=== PATIENT | female | born 1985 | race Hispanic/Latino ===

== ENCOUNTER 2016-11-22 10:56 | Emergency (ER) | payer OTHER ==
[~2016-11-22] VITALS: Ht 154.9 cm; Wt 107.0 kg
--- NOTE | 2016-11-22 11:30 | ED UPPER/LOWER EXTREMITY COMPL ---
History of Present Illness General Chief Complaint: Lower Extremity Problems Stated Complaint: ANKLE PAIN Source: patient Exam Limitations: no limitations Vital Signs & Intake/Output Vital Signs & Intake/Output Vital Signs Date Time Temp Pulse Resp B/P B/P Pulse O2 O2 Flow FiO2 Mean Ox Delivery Rate 11/22 1255 97.9 78 18 108/70 99 Room Air 11/22 1112 98.2 79 16 104/70 98 Room Air Room Air Allergies Coded Allergies: No Known Allergies (11/22/16) Reconcile Medications Levothyroxine Sodium 50 MCG TABLET 1 TAB PO DAILY AC THYROID (Reported) Meloxicam (Mobic) 15 MG TABLET 1 TAB PO DAILY PRN PAIN Triage Note: PT TO TRIAGE WITH RIGHT MEDIAL ANKLE PAIN FOR 1 MONTH. PT STATES SHE ROLLED IT WROKING OUT. NO SWELLING REDNNESS NOTED Triage Nurses Notes Reviewed? yes Onset: Abrupt Duration: intermittent Timing: recent history Severity: moderate Severity Numbers: 5 : No Patient currently breastfeeds: No HPI: Patient is a 31-year-old female who presents emergency and that 2 weeks ago patient was trying to get off of a spinning like where her left foot got caught with the strap where she twisted her left foot resulting in pain to the medial aspect of her ankle. Patient states that symptoms have improved however yesterday she was running and noticed pain after the run to the same area of the medial left ankle region. Patient has not taken any medications for symptoms. Patient does state that ambulation makes worsen she has a limp. (JUDIE CAZARES) Past History Travel History Traveled to [place] past 21 day No Medical History Any Pertinent Medical History? see below for history Neurological: NONE EENT: NONE Cardiovascular: NONE Respiratory: NONE Gastrointestinal: NONE Hepatic: NONE Renal: NONE Musculoskeletal: NONE Psychiatric: depression Endocrine: hypothyroidism Blood Disorders: NONE Cancer(s): NONE AIR TRAFFIC SYSTEMS TECHNICIAN/Reproductive: NONE Surgical History Surgical History: non-contributory Psychosocial History What is your primary language Luxembourger Tobacco Use: Never used ETOH Use: denies use Illicit Drug Use: denies illicit drug use Family History Hx Contributory? No (JUDIE CAZARES) Review of Systems Review of Systems Constitutional: Reports: no symptoms. EENTM: Reports: no symptoms. Respiratory: Reports: no symptoms. Cardiovascular: Reports: no symptoms. Gastrointestinal/Abdominal: Reports: no symptoms. Genitourinary: Reports: no symptoms. Musculoskeletal: Reports: see HPI, joint pain. Skin: Reports: no symptoms. Neurological/Psychological: Reports: no symptoms. Hematologic/Endocrine: Reports: no symptoms. Immunological: Reports: no symptoms. All Other Systems: Reviewed and Negative (JUDIE CAZARES) Physical Exam Physical Exam General Appearance: no apparent distress, obese Neurologic/Tendon: normal sensation, normal motor functions, normal tendon functions, responds to pain, no evidence tendon injury, no pulse deficit Skin: intact, normal color, warm/dry Comments: HEENT: Normal EENT exam Neck: Supple, no lymphadenopathy, normal range of motion without pain or tenderness Back: Nontender, no CVA tenderness. Cardiovascular: Regular rate and rhythms no murmurs rubs or gallops, normal JVP Respiratory: Chest nontender. No respiratory distress.breath sounds clear to auscultation bilaterally Abdomen: Soft, nontender nondistended, no appreciable organomegaly. Normal bowel sounds. No ascites Extremity: Left knee nontender full active range of motion Left ankle normal inspection noted point tenderness to medial malleoli and deltoid ligament full active range of motion noted with mild pain Left foot normal inspection nontender pedal pulse +2 Neuro: Alert oriented x3, motor sensory normal, Skin: No appreciable rash on exposed skin, skin is warm and dry. Psych: Mood and affect is normal, memory and judgment is normal. (JUDIE CAZARES) Progress Differential Diagnosis: arterial insufficiency, compartment syndrome, contusion, dislocation, DVT, fracture, gout, septic arthritis, sprain, tendon injury Plan of Care: Orders Procedure Date/time Status Durable Medical Equipment 11/22 1154 Active No osseous injury noted on x-rays to where patient was symptomatically tender. Due to history of present illness and exam findings patient is likely to have deltoid sprain I placed an Salvatore wrap to the left ankle pre-and post-neurovascular was intact. Crutches were instructed for weightbearing as tolerated (JUDIE CAZARES) Diagnostic Imaging: Viewed by Me: Radiology Read. Radiology Impression: no fracture Comments: PATIENT: RODERICK FUENTES PRESENT AGE: 31 PATIENT ACCOUNT NO: [id number] : 85 LOCATION: [facility] ORDERING PHYSICIAN: JUDIE NELSON SERVICE DATE: 11/22/16-1116 EXAM TYPE: RAD - XRY-ANKLE 3 OR MORE VIEWS L EXAMINATION: XR ANKLE, LEFT CLINICAL INFORMATION: Pain left ankle for one month COMPARISON: None TECHNIQUE: AP, lateral, and mortise views of the left ankle. A fiducial marker was placed posteriorly at the distal aspect of the Achilles tendon. FINDINGS: The bones and soft tissues are normal. No fracture. Alignment is anatomic. Joint spaces are maintained. No joint effusion. Kager's fat pad is normal. IMPRESSION: Normal left ankle. DICTATED BY: FERNIE LIMON MD DATE/TIME DICTATED:11/22/161217 BRICKLAYER'S ASSISTANT:FRANCIE (JUDIE CAZARES) Departure Departure Disposition: HOME OR SELF CARE Condition: Stable Clinical Impression Primary Impression: Left ankle sprain Referrals: ANN MARIE HILL,MARIA ELENA UNKNOWN (PCP/Family) Additional Instructions: As discussed begin to ice the area directly 20 minutes every 2 hours. Begin the crutches until She can walk without pain. If symptoms worsen return to emergency room. Begin the prescription of meloxicam as directed for pain and inflammation. If no better in one week please follow up with orthopedic DR. JESUS for further evaluation treatment. Departure Forms: Customer Survey General Discharge Information Prescriptions: Current Visit Scripts Meloxicam (Mobic) 1 TAB PO DAILY PRN PAIN #15 TAB (JUDIE CAZARES) PA/GENERATION ENGINEERING TECHNOLOGIST Co-Sign Statement Statement: ED Attending supervision documentation- [] I saw and evaluated the patient. I have also reviewed all the pertinent lab results and diagnostic results. I agree with the findings and the plan of care as documented in the PA's/GENERATION ENGINEERING TECHNOLOGIST's documentation. [X] I have reviewed the ED Record and agree with the PA's/GENERATION ENGINEERING TECHNOLOGIST's documentation. [] Additions or exceptions (if any) to the PAs/GENERATION ENGINEERING TECHNOLOGIST's note and plan are summarized below: [] (MYAH HILL,ANKITA)
[2016-11-22] MEDS ORDERED: LEVOTHYROXINE50 MCG PO (12:11)
--- NOTE | 2016-11-22 12:25 | RADIOLOGY REPORT ---
EXAMINATION: XR ANKLE, LEFT CLINICAL INFORMATION: Pain left ankle for one month COMPARISON: None TECHNIQUE: AP, lateral, and mortise views of the left ankle. A fiducial marker was placed posteriorly at the distal aspect of the Achilles tendon. FINDINGS: The bones and soft tissues are normal. No fracture. Alignment is anatomic. Joint spaces are maintained. No joint effusion. Kager's fat pad is normal. IMPRESSION: Normal left ankle.
[2016-11-22] MEDS ORDERED: MOBIC15 M1 PO (12:32)
== END 2016-11-22 12:57 ==
LOC: ERH 10:56
DX: S93.402A Sprain of unspecified ligament of left ankle, initial encounter (principal); X58.XXXA Exposure to other specified factors, initial encounter; Y92.9 Unspecified place or not applicable; Y93.9 Activity, unspecified
CPT/HCPCS: 73610-LT